=== PATIENT | male | born 1945 | race Caucasian/White ===

== ENCOUNTER 2018-02-24 08:34 | Inpatient (IN) | payer MEDICARE ==
[~2018-02-24] VITALS: Ht 172.7 cm; Wt 69.9 kg
[2018-02-24] MEDS ORDERED: SODIUM CHLORIDE FLUSH 10ML SYR IVF ONE (09:00)
[2018-02-24] MEDS ORDERED: SODIUM CHLORIDE 0.9% 1,000ML IVBOLUS ONE ×2 (09:00→13:30)
[2018-02-24] MEDS ORDERED: ACETAMINOPHEN 325 MG TABLET PO ONE ×2 (09:00→11:30)
[2018-02-24 09:27] LABS: BASOPHILS # (AUTO) 0.07 x10^3/uL (0-0.1); BASOPHILS % (AUTO) 1 % (0-1); EOSINOPHILS # (AUTO) 0.62 x10^3/uL (0-0.4); EOSINOPHILS % (AUTO) 5 % (1-7); LYMPHOCYTES # (AUTO) 1.47 x10^3/uL (1-3.4); LYMPHOCYTES % (AUTO) 13 % (22-44); MD NO; MEAN CORPUSCULAR HEMOGLOBIN 30.9 pg (27.5-34.5); MEAN CORPUSCULAR HGB CONC 32.1 g/dL (33.2-36.2); MEAN CORPUSCULAR VOLUME 96.2 fL (81-97); MEAN PLATELET VOLUME 7.1 fL (7.4-10.4); MONOCYTES % (AUTO) 7 % (2-9); NEUTROPHILS # (AUTO) 8.66 x10^3/uL (1.8-6.8); NEUTROPHILS % (AUTO) 75 % (42-75); PLATELET COUNT 291 x10^3/uL (130-400); RED BLOOD COUNT 2.97 x10^6/uL (4.38-5.82); RED CELL DISTRIBUTION WIDTH 16.2 % (9.4-14.8)
[2018-02-24 09:30] LABS: ALANINE AMINOTRANSFERASE 106 U/L (12-78); ALBUMIN 2.9 g/dL (3.4-5.0); CREATININE 2.94 mg/dL (0.7-1.3)
[2018-02-24] MEDS ORDERED: CEFTRIAXONE PMX 1GM/50ML 50 ML IV ONE (09:30)
[2018-02-24 09:32] LABS: ALKALINE PHOSPHATASE 113 U/L (45-117); BILIRUBIN,TOTAL 0.4 mg/dL (0.2-1.0); TOTAL PROTEIN 6.8 g/dL (6.4-8.2)
[2018-02-24 09:40] LABS: ANION GAP 6 mmol/L (5-15); CHLORIDE 103 mmol/L (98-107)
[2018-02-24] MEDS ORDERED: INSULIN REGULAR 100 UNITS/ML, 3ML VIAL IVPush ONE ×2 (10:00→13:30)
[2018-02-24] MEDS ORDERED: CALCIUM CHLORIDE 10%, 10ML SYR IVPush ONE (10:00)
[2018-02-24] MEDS ORDERED: AZITHROMYCIN 500 MG in SODIUM CHLORIDE 0.9% 250 ML IVPB ONE (10:00)
[2018-02-24] MEDS ORDERED: DEXTROSE 50%, 50ML SYRINGE IVPush ONE ×2 (10:00→13:30)
[2018-02-24] MEDS ORDERED: SODIUM BICARB 8.4%, 50ML SYRINGE IVPush ONE ×3 (10:00→13:30)
[2018-02-24] MEDS ORDERED: ACETAMINOPHEN 325 MG TABLET ONE ×2 (10:11→11:19)
[2018-02-24 10:22] LABS: CULTURE INDICATED? YES; MICROSCOPIC INDICATED
[2018-02-24] MEDS ORDERED: SODIUM CHLORIDE FLUSH 10ML SYR IVF PRN (10:30)
[2018-02-24] MEDS ORDERED: CEFTRIAXONE PMX 1GM/50ML 50 ML ONE (10:31)
[2018-02-24] MEDS ORDERED: SODIUM BICARB 8.4%, 50ML SYRINGE ONE (10:33)
[2018-02-24] MEDS ORDERED: INSULIN REGULAR 100 UNITS/ML, 3ML VIAL ONE (10:33)
[2018-02-24] MEDS ORDERED: CALCIUM CHLORIDE 10%, 10ML SYR ONE (10:33)
[2018-02-24] MEDS ORDERED: DEXTROSE 50%, 50ML SYRINGE ONE (10:33)
[2018-02-24] MEDS ORDERED: DULO30CA2 PO (11:21)
[2018-02-24] MEDS ORDERED: FINA5TAB4 PO (11:21)
[2018-02-24] MEDS ORDERED: HYDR-3343 PO (11:21)
[2018-02-24] MEDS ORDERED: INSU100V13 SC (11:21)
[2018-02-24] MEDS ORDERED: SODI650T PO (11:21)
[2018-02-24] MEDS ORDERED: PRAV20TA2 PO (11:21)
[2018-02-24] MEDS ORDERED: INSU100C5 SQ-INSULIN (11:21)
[2018-02-24] MEDS ORDERED: AMLO10TA4 PO (11:21)
[2018-02-24] MEDS ORDERED: GABA300C10 PO (11:21)
[2018-02-24] MEDS ORDERED: LACT10SO28 PO (11:21)
[2018-02-24] MEDS ORDERED: [UNRECOGNIZED DRUG - OTHER] PO (11:21)
[2018-02-24] MEDS ORDERED: PANT20TA3 PO (11:21)
[2018-02-24] MEDS ORDERED: PHARMACY MAY ADJ FOR RENAL FX MC PRN (11:30)
[2018-02-24] MEDS ORDERED: SODIUM POLYSTYRENE SULFONATE ORAL SUSP GT ONE (11:30)
[2018-02-24] MEDS ORDERED: CALCIUM GLUCONATE 0.46MEQ/1ML IVPush ONE ×2 (11:30→13:30)
[2018-02-24] MEDS ORDERED: SODIUM CHLORIDE 0.9% 1,000 ML IV SCH (11:33)
[2018-02-24] MEDS ORDERED: ACETAMINOPHEN 325 MG TABLET PO PRN (12:00)
[2018-02-24] MEDS ORDERED: ONDANSETRON 2MG/ML, 2ML IVPush PRN (12:00)
[2018-02-24 12:30] VITALS: BP 96/57
[2018-02-24 12:32] LABS: ANION GAP 3 mmol/L (5-15); CALCIUM 7.6 mg/dL (8.5-10.1); CHLORIDE 108 mmol/L (98-107); CREATININE 2.86 mg/dL (0.7-1.3)
[2018-02-24 12:50] VITALS: BP 94/56
[2018-02-24] MEDS ORDERED: DEXTROSE 4 GM TAB.CHEW PO PRN (13:30)
[2018-02-24] MEDS ORDERED: GLUCAGON 1 MG IM PRN (13:30)
[2018-02-24] MEDS ORDERED: CALCIUM GLUCONATE 4.6 MEQ in SODIUM CHLORIDE 0.9% 50 ML IV ONE (14:30)
[2018-02-24 15:02] LABS: CREATININE,URINE RANDOM 45.6 mg/dL
[2018-02-24 15:45] VITALS: BP 117/65
[2018-02-24] MEDS: DEXTROSE 50%, 50ML SYRINGE IVPush PRN ×2 (15:47→16:00)
[2018-02-24] MEDS: SODIUM CHLORIDE 0.9% 1,000 ML IV SCH (16:13)
[2018-02-24] MEDS: HEPARIN 5,000 UNITS/ML, 1ML SQ SCH ×2 (16:13→23:20)
[2018-02-24] MEDS: SODIUM BICARBONATE 650 MG TABLET PO SCH ×2 (16:14→20:39)
[2018-02-24] MEDS: DOXYCYCLINE 100 MG in DEXTROSE 5% 250 ML IV SCH (16:14)
[2018-02-24] MEDS: GABAPENTIN 300 MG CAPSULE PO SCH ×2 (16:14→20:39)
[2018-02-24 16:24] LABS: ANION GAP 5 mmol/L (5-15); CALCIUM 7.7 mg/dL (8.5-10.1); CHLORIDE 109 mmol/L (98-107); CREATININE 2.88 mg/dL (0.7-1.3)
[2018-02-24] MEDS: PIPERACILLIN/TAZO/PMX 4.5GM 100 ML IV SCH ×3 (17:30→23:19)
[2018-02-24] MEDS ORDERED: SODIUM POLYSTYRENE SULFONATE ORAL SUSP PO ONE (17:30)
[2018-02-24 20:07] VITALS: BP 114/63
[2018-02-24] MEDS: PRAVASTATIN 20 MG TABLET PO SCH (20:38)
[2018-02-24] MEDS: SODIUM CHLORIDE FLUSH 10ML SYR IVF SCH (20:40)
[2018-02-24] MEDS: ACETAMINOPHEN 650 MG/20.3 ML UDC GT PRN (20:49)
[2018-02-24] MEDS: INSULIN GLARGINE 100 UNITS/ML, PEN SQ-INSULIN SCH (21:00)
[2018-02-24 23:40] LABS: ANION GAP 5 mmol/L (5-15); CALCIUM 7.7 mg/dL (8.5-10.1); CHLORIDE 107 mmol/L (98-107); CREATININE 2.74 mg/dL (0.7-1.3)
[2018-02-25 02:19] VITALS: BP 146/71
[2018-02-25] MEDS: DOXYCYCLINE 100 MG in DEXTROSE 5% 250 ML IV SCH ×2 (03:59→16:58)
[2018-02-25] MEDS: ACETAMINOPHEN 650 MG/20.3 ML UDC GT PRN ×3 (04:05→21:03)
[2018-02-25] MEDS: PIPERACILLIN/TAZO/PMX 4.5GM 100 ML IV SCH (05:21)
[2018-02-25 05:44] LABS: BASOPHILS # (AUTO) 0.04 x10^3/uL (0-0.1); BASOPHILS % (AUTO) 0 % (0-1); EOSINOPHILS # (AUTO) 0.43 x10^3/uL (0-0.4); EOSINOPHILS % (AUTO) 4 % (1-7); LYMPHOCYTES # (AUTO) 1.67 x10^3/uL (1-3.4); LYMPHOCYTES % (AUTO) 17 % (22-44); MD NO; MEAN CORPUSCULAR HEMOGLOBIN 31.8 pg (27.5-34.5); MEAN CORPUSCULAR HGB CONC 32.8 g/dL (33.2-36.2); MEAN CORPUSCULAR VOLUME 96.9 fL (81-97); MEAN PLATELET VOLUME 6.8 fL (7.4-10.4); MONOCYTES # (AUTO) 0.77 x10^3/uL (0.2-0.8); MONOCYTES % (AUTO) 8 % (2-9); NEUTROPHILS # (AUTO) 6.94 x10^3/uL (1.8-6.8); NEUTROPHILS % (AUTO) 71 % (42-75); PLATELET COUNT 203 x10^3/uL (130-400); RED CELL DISTRIBUTION WIDTH 16.2 % (9.4-14.8)
[2018-02-25 05:49] LABS: ALANINE AMINOTRANSFERASE 72 U/L (12-78); ALBUMIN 2.3 g/dL (3.4-5.0); ANION GAP 6 mmol/L (5-15); CALCIUM 7.4 mg/dL (8.5-10.1); CHLORIDE 107 mmol/L (98-107); CREATININE 2.65 mg/dL (0.7-1.3)
[2018-02-25 06:25] LABS: ALKALINE PHOSPHATASE 83 U/L (45-117); BILIRUBIN,TOTAL 0.5 mg/dL (0.2-1.0); CHOL/HDL RATIO 1.6; CHOLESTEROL, TOTAL 72 mg/dL (140-239); HDL CHOL % 63 % (26-37); HDL CHOLESTEROL (DIRECT) 45 mg/dL (40-60); LDL CHOLESTEROL,CALCULATED 21 mg/dL (54-169); LDL/HDL RATIO 0.5 (0.5-3.0); TOTAL PROTEIN 5.6 g/dL (6.4-8.2); TRIGLYCERIDES 29 mg/dL (50-200); VLDL CHOLESTEROL 6 mg/dL (0-25)
[2018-02-25 07:55] VITALS: BP 145/72
[2018-02-25] MEDS: SODIUM CHLORIDE FLUSH 10ML SYR IVF SCH ×2 (07:59→20:56)
[2018-02-25] MEDS: HEPARIN 5,000 UNITS/ML, 1ML SQ SCH ×2 (07:59→16:58)
[2018-02-25] MEDS: SODIUM BICARBONATE 650 MG TABLET PO SCH ×3 (07:59→20:56)
[2018-02-25] MEDS: PANTOPRAZOLE 20MG TABLET PO SCH (07:59)
[2018-02-25] MEDS: FINASTERIDE 5 MG TABLET PO SCH (07:59)
[2018-02-25] MEDS: DULOXETINE 30 MG CAPSULE.DR PO SCH (08:00)
[2018-02-25] MEDS: GABAPENTIN 300 MG CAPSULE PO SCH ×3 (08:00→20:56)
[2018-02-25] MEDS: AMLODIPINE 5 MG TABLET PO SCH (08:00)
[2018-02-25] MEDS: PIPERACILLIN/TAZO/PMX 2.25GM 50 ML IVPB SCH ×2 (12:40→18:19)
[2018-02-25 13:30] VITALS: BP 118/64
[2018-02-25] MEDS: NOVOLOG HOMEINJ SCH ×2 (18:00→20:53)
[2018-02-25 19:14] VITALS: BP 134/79
[2018-02-25] MEDS: SODIUM CHLORIDE 0.9% 1,000 ML IV SCH (20:53)
[2018-02-25] MEDS: PRAVASTATIN 20 MG TABLET PO SCH (20:56)
[2018-02-25] MEDS: INSULIN GLARGINE 100 UNITS/ML, PEN SQ-INSULIN SCH ×2 (21:00→22:52)
[2018-02-26] MEDS: HEPARIN 5,000 UNITS/ML, 1ML SQ SCH ×3 (00:01→18:16)
[2018-02-26] MEDS: ACETAMINOPHEN 650 MG/20.3 ML UDC GT PRN ×3 (02:15→18:22)
[2018-02-26 02:42] VITALS: BP 150/72
[2018-02-26] MEDS: DOXYCYCLINE 100 MG in DEXTROSE 5% 250 ML IV SCH ×2 (04:11→16:49)
[2018-02-26] MEDS: SODIUM CHLORIDE 0.9% 1,000 ML IV SCH ×3 (04:11→22:44)
[2018-02-26 05:44] LABS: CALCIUM 7.2 mg/dL (8.5-10.1); CHLORIDE 108 mmol/L (98-107)
[2018-02-26 05:45] LABS: BASOPHILS # (AUTO) 0.03 x10^3/uL (0-0.1); BASOPHILS % (AUTO) 0 % (0-1); EOSINOPHILS # (AUTO) 0.55 x10^3/uL (0-0.4); EOSINOPHILS % (AUTO) 6 % (1-7); LYMPHOCYTES # (AUTO) 1.25 x10^3/uL (1-3.4); LYMPHOCYTES % (AUTO) 14 % (22-44); MD NO; MEAN CORPUSCULAR HEMOGLOBIN 31.6 pg (27.5-34.5); MEAN CORPUSCULAR HGB CONC 32.9 g/dL (33.2-36.2); MEAN PLATELET VOLUME 6.7 fL (7.4-10.4); MONOCYTES # (AUTO) 0.88 x10^3/uL (0.2-0.8); MONOCYTES % (AUTO) 10 % (2-9); NEUTROPHILS # (AUTO) 6.43 x10^3/uL (1.8-6.8); NEUTROPHILS % (AUTO) 70 % (42-75); PLATELET COUNT 223 x10^3/uL (130-400); RED BLOOD COUNT 2.34 x10^6/uL (4.38-5.82); RED CELL DISTRIBUTION WIDTH 16.3 % (9.4-14.8)
[2018-02-26 05:51] LABS: ALANINE AMINOTRANSFERASE 58 U/L (12-78); ALBUMIN 2.1 g/dL (3.4-5.0); ALKALINE PHOSPHATASE 71 U/L (45-117); ANION GAP 7 mmol/L (5-15); BILIRUBIN,TOTAL 0.3 mg/dL (0.2-1.0); CREATININE 2.35 mg/dL (0.7-1.3); TOTAL PROTEIN 5.4 g/dL (6.4-8.2)
[2018-02-26] MEDS: PIPERACILLIN/TAZO/PMX 2.25GM 50 ML IVPB SCH ×4 (06:10→19:09)
[2018-02-26] MEDS: NOVOLOG HOMEINJ SCH ×4 (07:00→20:51)
[2018-02-26 07:40] VITALS: BP 120/71
[2018-02-26] MEDS: DEXTROSE 50%, 50ML SYRINGE IVPush PRN (08:43)
[2018-02-26] MEDS: SODIUM CHLORIDE FLUSH 10ML SYR IVF SCH ×2 (08:43→20:50)
[2018-02-26] MEDS: PANTOPRAZOLE 20MG TABLET PO SCH (09:48)
[2018-02-26] MEDS: AMLODIPINE 5 MG TABLET PO SCH (09:48)
[2018-02-26] MEDS: SODIUM BICARBONATE 650 MG TABLET PO SCH ×3 (09:48→20:49)
[2018-02-26] MEDS: GABAPENTIN 300 MG CAPSULE PO SCH ×3 (09:48→20:49)
[2018-02-26] MEDS: FINASTERIDE 5 MG TABLET PO SCH (09:48)
[2018-02-26] MEDS: DULOXETINE 30 MG CAPSULE.DR PO SCH (09:49)
[2018-02-26] MEDS: IRON SUCROSE COMPLEX 100MG/5ML IV SCH (12:49)
[2018-02-26 12:58] VITALS: BP 151/74
[2018-02-26 13:55] LABS: OCCULT BLOOD NEGATIVE (NEGATIVE)
[2018-02-26 18:31] VITALS: BP 152/67
[2018-02-26] MEDS: PRAVASTATIN 20 MG TABLET PO SCH (20:49)
[2018-02-26] MEDS: INSULIN GLARGINE 100 UNITS/ML, PEN SQ-INSULIN SCH (21:00)
[2018-02-27] MEDS: HEPARIN 5,000 UNITS/ML, 1ML SQ SCH ×3 (00:05→16:00)
[2018-02-27] MEDS: PIPERACILLIN/TAZO/PMX 2.25GM 50 ML IVPB SCH ×3 (00:58→13:13)
[2018-02-27] MEDS: ACETAMINOPHEN 650 MG/20.3 ML UDC GT PRN ×2 (01:04→09:18)
[2018-02-27 01:15] VITALS: BP 137/66
[2018-02-27] MEDS: DOXYCYCLINE 100 MG in DEXTROSE 5% 250 ML IV SCH ×2 (04:16→17:19)
[2018-02-27 05:58] LABS: BASOPHILS # (AUTO) 0.05 x10^3/uL (0-0.1); BASOPHILS % (AUTO) 1 % (0-1); EOSINOPHILS # (AUTO) 0.36 x10^3/uL (0-0.4); EOSINOPHILS % (AUTO) 4 % (1-7); LYMPHOCYTES # (AUTO) 1.13 x10^3/uL (1-3.4); LYMPHOCYTES % (AUTO) 11 % (22-44); MD NO; MEAN CORPUSCULAR HEMOGLOBIN 31.5 pg (27.5-34.5); MEAN CORPUSCULAR HGB CONC 32.8 g/dL (33.2-36.2); MEAN CORPUSCULAR VOLUME 96.2 fL (81-97); MEAN PLATELET VOLUME 6.7 fL (7.4-10.4); MONOCYTES % (AUTO) 11 % (2-9); NEUTROPHILS # (AUTO) 7.23 x10^3/uL (1.8-6.8); NEUTROPHILS % (AUTO) 73 % (42-75); PLATELET COUNT 237 x10^3/uL (130-400); RED BLOOD COUNT 2.45 x10^6/uL (4.38-5.82); RED CELL DISTRIBUTION WIDTH 16.3 % (9.4-14.8)
[2018-02-27 06:10] LABS: ANION GAP 7 mmol/L (5-15); CALCIUM 7.4 mg/dL (8.5-10.1); CHLORIDE 107 mmol/L (98-107)
[2018-02-27] MEDS: SODIUM CHLORIDE 0.9% 1,000 ML IV SCH (06:22)
[2018-02-27] MEDS: NOVOLOG HOMEINJ SCH ×3 (07:36→16:52)
[2018-02-27 08:16] VITALS: BP 167/78
[2018-02-27] MEDS: AMLODIPINE 5 MG TABLET PO SCH (09:18)
[2018-02-27] MEDS: SODIUM BICARBONATE 650 MG TABLET PO SCH ×2 (09:19→16:52)
[2018-02-27] MEDS: GABAPENTIN 300 MG CAPSULE PO SCH ×2 (09:19→16:52)
[2018-02-27] MEDS: FINASTERIDE 5 MG TABLET PO SCH (09:20)
[2018-02-27] MEDS: DULOXETINE 30 MG CAPSULE.DR PO SCH (09:20)
[2018-02-27] MEDS: IRON SUCROSE COMPLEX 100MG/5ML IV SCH (09:20)
[2018-02-27] MEDS: SODIUM CHLORIDE FLUSH 10ML SYR IVF SCH (09:20)
[2018-02-27] MEDS: PANTOPRAZOLE 20MG TABLET PO SCH (10:16)
[2018-02-27 15:08] VITALS: BP 143/69
[2018-02-27] MEDS ORDERED: DOXY100T10 GT (16:49)
[2018-02-27] MEDS ORDERED: CEFD125S3 PO (16:49)
[2018-02-27] MEDS ORDERED: CEFD125S3 GT (16:58)
== END 2018-02-28 06:06 | disposition home health service (06) | DRG 871 ==
LOC: ED 10:01 → EDIP 10:02 → ED 10:12 → 4WST 11:55
PROVIDERS: ADMIT Internal Medicine; ATTEND Internal Medicine
PROC: 0T9B70Z Drainage of Bladder with Drainage Device, Via Natural or Artificial Opening (ICD-10-PCS; principal; 2018-02-24)
DX: A41.9 Sepsis, unspecified organism (principal); E43 Unspecified severe protein-calorie malnutrition; J18.1 Lobar pneumonia, unspecified organism; N17.0 Acute kidney failure with tubular necrosis; N30.00 Acute cystitis without hematuria; N18.3 Chronic kidney disease, stage 3 (moderate); E11.22 Type 2 diabetes mellitus with diabetic chronic kidney disease; D63.8 Anemia in other chronic diseases classified elsewhere; B96.1 Klebsiella pneumoniae [K. pneumoniae] as the cause of diseases classified elsewhere; E11.21 Type 2 diabetes mellitus with diabetic nephropathy; E78.5 Hyperlipidemia, unspecified; E87.5 Hyperkalemia; E83.39 Other disorders of phosphorus metabolism; E11.649 Type 2 diabetes mellitus with hypoglycemia without coma; E11.42 Type 2 diabetes mellitus with diabetic polyneuropathy; G47.33 Obstructive sleep apnea (adult) (pediatric); I12.9 Hypertensive chronic kidney disease with stage 1 through stage 4 chronic kidney disease, or unspecified chronic kidney disease; G89.29 Other chronic pain; R13.10 Dysphagia, unspecified; Z79.4 Long term (current) use of insulin; Z80.42 Family history of malignant neoplasm of prostate; Z85.46 Personal history of malignant neoplasm of prostate; Z86.73 Personal history of transient ischemic attack (TIA), and cerebral infarction without residual deficits; Z87.891 Personal history of nicotine dependence; Z87.01 Personal history of pneumonia (recurrent); Z87.442 Personal history of urinary calculi; Z87.440 Personal history of urinary (tract) infections; Z93.1 Gastrostomy status; Z99.81 Dependence on supplemental oxygen; Z68.23 Body mass index [BMI] 23.0-23.9, adult
CPT/HCPCS: 36415; 71045; 74230; 76770; 80048; 80053; 80061; 81001; 82272; 82436; 82570; 82728; 82947; 82962; 83540; 83550; 83605; 83735; 84100; 84133; 84145; 84300; 84466; 85025; 87040; 87077; 87086; 87186; 93005; 96365; 96375; J0456; J0610; J0696; J1644; J1756; J1815; J2543; J7060; J7030; J7050